=== PATIENT | female | born 1990 | race Caucasian/White ===

== ENCOUNTER → 2018-09-10 15:30 | Outpatient (CLI) | payer BC, SELFPAY ==
[2018-09-10 16:31] LABS: HCG Quantitative /Beta subunit < 2.39 mIU/mL
== END ==
PROVIDERS: Visit Provider Specialist
DX: N92.6 Irregular menstruation, unspecified (principal); O26.90 Pregnancy related conditions, unspecified, unspecified trimester
CPT/HCPCS: 36415; 84702

== ENCOUNTER → 2018-12-31 16:58 | Outpatient (CLI) | payer BC, SELFPAY ==
[2018-12-31 18:09] LABS: Appearance Urine UA CLEAR; Bilirubin Urine UA NEGATIVE (NEGATIVE); Color Urine UA YELLOW; Glucose Urine UA NEGATIVE (Negative); Ketones Urine UA 2+ (NEGATIVE); Leukocyte Esterase Urine UA NEGATIVE (NEGATIVE); Nitrite Urine UA NEGATIVE (Negative); Occult Blood Urine UA NEGATIVE (Negative); Protein Urine UA NEGATIVE (Negative); Urobilinogen Urine UA 0.2 E.U./dL (0.2)
[2018-12-31 18:22] LABS: Add Manual Diff / Slide Review NO; Basophils Absolute Auto 0 /uL (0-100); Basophils Percent Auto 0.5 % (0-2); Eosinophils Absolute Auto 300 /uL (0-450); Eosinophils Percent Auto 3.6 % (2-4); Hemoglobin 14.4 g/dL (12.0-16.0); Lymphocytes Absolute Auto 2000 /uL (1100-4500); Lymphocytes Percent Auto 21.8 % (25-40); Mean Corpuscular HGB Conc 34.4 % (30-36); Mean Corpuscular Hemoglobin 31.6 PG (26-34); Mean Corpuscular Volume 91.7 fL (80-100); Monocytes Absolute Auto 400 /uL (0-900); Monocytes Percent Auto 4.6 % (3-14); Neutrophils Absolute Auto 6300 /uL (1500-7000); Neutrophils Percent Auto 69.5 % (50-75); Platelet Count 196 X10^3/uL (150-400); Red Blood Cell Count 4.58 X10^6/uL (4.0-5.2); Red Cell Distribution Width 13.9 % (11.6-14.8); White Blood Cell Count 9.1 X10^3/uL (4.5-11.0)
[2018-12-31 18:51] LABS: Hepatitis B Surface Antigen NEGATIVE s/c (NEGATIVE)
[2018-12-31 18:52] LABS: Rubella Antibody IgG 59.9 IU/mL (>15)
[2018-12-31 19:08] LABS: HIV 1 & 2 Ab/Ag 4th Gen Combo NEGATIVE (NEGATIVE)
[2018-12-31 20:06] LABS: Hep C Virus Ab w/Reflex Quant NEGATIVE s/c (NEGATIVE)
[2019-01-06 15:18] LABS: RPR Screen NONREACTIVE
== END ==
PROVIDERS: PCP Obstetrics & Gynecology; Visit Provider Obstetrics & Gynecology
DX: Z34.91 Encounter for supervision of normal pregnancy, unspecified, first trimester (principal)
CPT/HCPCS: 36415; 80055; 81003; 86787; 86803; 86850; 86900; 86901; 87086; 87389

== ENCOUNTER → 2019-01-14 14:48 | Outpatient (CLI) | payer BC, SELFPAY ==
[2019-01-14 20:32] LABS: Urine N gonorrhoeae NOT DETECTED
[2019-01-14 20:34] LABS: Urine Chlamydia NOT DETECTED
== END ==
PROVIDERS: PCP Obstetrics & Gynecology; Visit Provider Obstetrics & Gynecology
DX: Z11.3 Encounter for screening for infections with a predominantly sexual mode of transmission (principal)
CPT/HCPCS: 87491; 87591

== ENCOUNTER → 2019-03-10 15:16 | Outpatient (CLI) | payer BC, SELFPAY ==
[2019-03-14 18:32] LABS: AFP, Serum 34.7 ng/mL; Brief History NTD NOT GIVEN; Calc Gestational Age 17.4; Cigarette Smoker N; Collection Date 111819; Donated Egg NOT GIVEN; Donor Egg Age NOT GIVEN; Inhibin A, Dimeric 173 pg/mL; Maternal Weight 142 lbs; Number of Fetuses NOT GIVEN; Previous Pregnancy Down Syndro NOT GIVEN; hCG, MoM 0.93
== END ==
PROVIDERS: PCP Obstetrics & Gynecology; Visit Provider Obstetrics & Gynecology
DX: Z34.02 Encounter for supervision of normal first pregnancy, second trimester (principal); Z3A.17 17 weeks gestation of pregnancy
CPT/HCPCS: 36415; 82105; 82677; 84702; 86336

== ENCOUNTER → 2019-04-01 12:14 | Outpatient (CLI) | payer BC, SELFPAY ==
--- NOTE | 2019-04-01 12:15 | DI.US.S_ITS ---
PROCEDURE: US OB >= 14 WEEKS FETUS INDICATIONS: ANATOMY OUTSIDE/PRIOR DATING DATA: Last menstrual period (LMP): 11/08/18. LMP-based estimated date of delivery (LAWRENCE): 08/14/18. First dating scan (date and location): 01/14/19. Estimated date of delivery (LAWRENCE) from first dating scan: 08/15/19. TECHNIQUE: Real-time scanning was performed of the fetus, with image documentation and biometric measurements. COMPARISON: [facility], , OB >= 14 WEEKS FETUS, 03/10/2019, 15:09. FINDINGS: General: A single living intrauterine gestation is present. Presentation: Breech Placenta: Placental position is anterior, without previa. Amniotic fluid index: 17.6 cm, normal range is 5-24 cm. heart rate: 144 beats per minute. Maternal cervical canal: 3.4 cm long. Normal lower limit is 2.5 cm. biometrics: Biparietal diameter: 20 weeks 3 days Head circumference: 20 weeks 5 days Abdominal circumference: 21 weeks Femur length: 20 weeks 4 days Estimated gestational age from initial scan: 20 weeks 4 days Composite gestational age from present scan: 20 weeks 5 days Estimated weight and percentile: 376 g; 56 percentile Measurement variability for biometric dating: +/- 7 days from 14 weeks to 15 weeks 6 days gestation, +/- 10 days from 16 weeks to 21 weeks 6 days gestation, +/- 2 weeks from 22 weeks to 27 weeks 6 days gestation, +/- 3 weeks for 28 weeks gestation or later. weight reference: 4500 g or EFW >90/95% is considered macrosomia or large for gestational age. EFW <10% is small for gestational age. EFW 5% or less is considered intra-uterine growth restriction. Anatomic survey: Neuro: Ventricles are non-dilated at less than 10 mm. Cisterna magna is normal at 3-11 mm. Cerebellum is normal in size and morphology. Nuchal skin fold: Normal at less than 6 mm between 14-21 weeks gestational age. Face: Nose and lips, facial profile are normal. Spine: No evidence for spina bifida. Heart: 4-chambered heart is present, with normal ventricular outflow tracts. Diaphragm: Diaphragm is intact. Stomach: Left-sided stomach is present. Kidneys: No hydronephrosis. Normal is less than 5 mm in 2nd trimester, less than 7 mm in 3rd trimester. Cord: 3-vessel cord has orthotopic insertion. Bladder: Normal in size. Extremities: All 4 extremities identified. IMPRESSION: 1. Normal interval growth. 2. Normal anatomic survey. Dictated by: Carmelo OROZCO Interpreted: Sammi Balderrama MD on 04/01/2019 at 13:10 Approved by: Sammi Balderrama M.D. on 04/01/2019 at 15:47
== END ==
PROVIDERS: Family Provider Obstetrics & Gynecology; Visit Provider Obstetrics & Gynecology
DX: Z34.02 Encounter for supervision of normal first pregnancy, second trimester (principal); Z3A.20 20 weeks gestation of pregnancy
CPT/HCPCS: 76811

== ENCOUNTER → 2019-05-16 09:13 | Outpatient (CLI) | payer BC, SELFPAY ==
[2019-05-16 10:47] LABS: Hematocrit 35.6 % (36-46); Hemoglobin 12.5 g/dL (12.0-16.0)
[2019-05-16 11:07] LABS: GTT (PREG) 1 Hour PP 50gm Dose 113 mg/dL (76-139)
== END ==
PROVIDERS: Visit Provider Obstetrics & Gynecology
DX: Z34.02 Encounter for supervision of normal first pregnancy, second trimester (principal); Z34.03 Encounter for supervision of normal first pregnancy, third trimester
CPT/HCPCS: 36415; 82950; 85014; 85018

== ENCOUNTER → 2019-07-22 11:29 | Outpatient (CLI) | payer BC, SELFPAY ==
[2019-07-23 10:59] LABS: Strep Grp B PCR NEG for Grp B Strep
== END ==
PROVIDERS: Visit Provider Obstetrics & Gynecology
DX: Z34.03 Encounter for supervision of normal first pregnancy, third trimester (principal); Z3A.36 36 weeks gestation of pregnancy
CPT/HCPCS: 87653

== ENCOUNTER → 2019-08-06 12:44 | Outpatient (CLI) | payer BC, SELFPAY | PROVIDERS: Visit Provider Obstetrics & Gynecology | DX: R82.90 Unspecified abnormal findings in urine (principal) | CPT/HCPCS: 87086 ==

== ENCOUNTER 2019-08-15 08:37 | Outpatient (CLI) | payer BC, SELFPAY ==
--- NOTE | 2019-08-15 11:53 | P.TNLD_ITS ---
Visit Information Visit Information Date of evaluation: 08/15/19 Primary OB Provider: Ngozi Woodward Reason for Evaluation: Yes non-stress test Comments/Additional reasons for admission: Patient a P1 @40+0 presenting for postdates testing. [facility] Social History Smoking Status: Never smoker Evaluation Evaluation Variability: Average (6-10) monitor accelerations: Present monitor decelerations: Absent Category of Tracing: I Diagnosis, Plan/Disposition Plan/Disposition Plan: Home with scheduled follow up and antepartum precautions. Scheduled for induction at 41 weeks. OB Disposition: home
== END 2019-08-15 09:06 | disposition home or self-care (01) ==
LOC: OB 08-18 12:50
PROVIDERS: Referring Provider Obstetrics & Gynecology; Visit Provider Obstetrics & Gynecology
DX: O48.0 Post-term pregnancy (principal); Z3A.40 40 weeks gestation of pregnancy
CPT/HCPCS: 59025; G0378; G0379

== ENCOUNTER 2019-08-17 22:42 | Inpatient (IN) | payer BC, SELFPAY ==
[2019-08-18 02:16] VITALS: BP 110/73
[2019-08-18 03:02] LABS: Add Manual Diff / Slide Review NO; Basophils Absolute Auto 100 /uL (0-100); Basophils Percent Auto 0.5 % (0-2); Eosinophils Absolute Auto 0 /uL (0-450); Eosinophils Percent Auto 0.3 % (2-4); Hematocrit 39.4 % (36-46); Hemoglobin 13.4 g/dL (12.0-16.0); Lymphocytes Absolute Auto 1400 /uL (1100-4500); Lymphocytes Percent Auto 9.9 % (25-40); Mean Corpuscular HGB Conc 33.9 % (30-36); Mean Corpuscular Hemoglobin 31.3 PG (26-34); Mean Corpuscular Volume 92.5 fL (80-100); Monocytes Absolute Auto 400 /uL (0-900); Monocytes Percent Auto 2.7 % (3-14); Neutrophils Absolute Auto 12100 /uL (1500-7000); Neutrophils Percent Auto 86.6 % (50-75); Platelet Count 166 X10^3/uL (150-400); Red Blood Cell Count 4.26 X10^6/uL (4.0-5.2); Red Cell Distribution Width 13.5 % (11.6-14.8)
[2019-08-18] MEDS: OXYTOCIN 10 UNIT/ML VIAL 20 UNIT (04:00)
--- NOTE | 2019-08-18 04:13 | P.HPOB_ITS ---
OB HPI Date/Time Date of admission: 08/18/19 Date Patient Seen: 08/18/19 Time Patient Seen: 03:00 History of Present Condition Chief complaint: eval of labor : 1 Para: 0 Estimated Date of Delivery: 08/15/19 Estimated Gestational Age (weeks): 40w3d Narrative: Stefani Sim is a 29 year old at 40w3d who presented in active labor. Pt reports contractions started yesterday at 3am, increasing in frequency and intensity since then. No vaginal bleeding or LOF. Pt has been feeling baby move regularly. History of Present care: good care, initiated at week # (9) and pounds weight gain (21) Dating criteria: based on 1st trimester US only Ultrasounds: normal 1st trimester US and normal mid trimester US Obstetrical complications: none Medical complications: none Preadmission Labs Blood type: A (+) positive -: Antibody screen: negative, GBS status: negative, HBsAG: negative, HIV: negative and RPR/VDLR: negative -: Chlamydia screen: not detected and Gonorrhea screen: not detected -: Rubella: immune and Varicella: immune HCT: 35.6 HCAB: negative Quad screen: Normal Urine: Lactobacillus 1 hr GTT: 113 Evaluation Evaluation Baseline heart rate: 130 Variability: Moderate (11-25) monitor accelerations: Present monitor decelerations: Absent Contraction Frequency (minutes): 2 Uterine Contraction Intensity: Strong/Firm Category of Tracing: I Cervical dilation (cm): 10 Cervical effacement (%): 100 station: +2 Laboratory results: Laboratory Tests 08/18/19 08/18/19 02:50 02:50 WBC 14.0 H RBC 4.26 Hgb 13.4 Hct 39.4 MCV 92.5 MCH 31.3 MCHC 33.9 RDW 13.5 Plt Count 166 Neut % (Auto) 86.6 H Lymph % (Auto) 9.9 L [place] % (Auto) 2.7 L Eos % (Auto) 0.3 L Baso % (Auto) 0.5 Neut # (Auto) 36557 H Lymph # (Auto) 1400 [place] # (Auto) 400 Eos # (Auto) 0 Baso # (Auto) 100 Blood Type A Positive Antibody Screen Negative Comments: After informed consent, AROM performed with production of clear fluid. PFSH Social History Smoking Status: Never smoker Meds Home Medications and Allergies Home Medications Medication Instructions Recorded Confirmed Type prenat.vits,cristopher,jpi-izoe-vrtnr 1 tab PO DAILY 12/31/18 08/17/19 History Double Electric breast Pump and #1 each 05/13/19 08/17/19 Rx Supplies Allergies Allergy/AdvReac Type Severity Reaction Status Date / Time steroids Allergy Mild Flare up Uncoded 12/31/18 16:56 patient's atopic dermatitis Exam Vital Signs (past 8 hours): - 08/18/19 02:16 Blood Pressure 110/73 Narrative Exam Narrative: Gen: NAD, sitting comfortably in bed, calm and relaxed between contractions CV: RRR, no murmurs Resp: clear to auscultation bilaterally Abd: soft, nondistended, gravid Ext: trace edema Objective Labs Result Diagrams: 08/18/19 02:50 Labs: Laboratory Results - last 24 hr 08/18/19 08/18/19 02:50 02:50 WBC 14.0 H RBC 4.26 Hgb 13.4 Hct 39.4 MCV 92.5 MCH 31.3 MCHC 33.9 RDW 13.5 Plt Count 166 Neut % (Auto) 86.6 H Lymph % (Auto) 9.9 L [place] % (Auto) 2.7 L Eos % (Auto) 0.3 L Baso % (Auto) 0.5 Neut # (Auto) 95527 H Lymph # (Auto) 1400 [place] # (Auto) 400 Eos # (Auto) 0 Baso # (Auto) 100 Blood Type A Positive Antibody Screen Negative Assessment and Plan Assessment and Plan Assessment and Plan narrative: 29yo at 40w3d here in active labor. No complications with . AROM performed with clear fluid present. GBS negative, Rh positive. - Expectant management, anticipate vaginal delivery - FHT reassuring - Natural methods for pain control, no epidural desired - GBS negative, no antibiotic prophylaxis
--- NOTE | 2019-08-18 04:21 | PM.OBPRVD ---
Labor & Delivery Delivery date: 08/18/19 Cervical ripening method: none Induction method: none Delivery monitor: external FHT Route of delivery: Episiotomy description: None L&D Laceration Description: None Estimated blood loss (mL): 200 Anesthesia type: None Complications: None Narrative: PROCEDURE: at 40w3d presented in active labor and was admitted to Labor and Delivery. The patient progressed through the 1st stage over 8 hours. Pain was controlled by natural methods. Once the pt was complete, AROM was performed with clear fluid present. The patient progressed through the 2nd stage over 37 minutes and delivered a viable female infant with APGARs 9/9 at 3:50 via without complications. The cord was clamped and cut after it stopped pulsating. The perineum and vagina were inspected with no lacerations. PREPROCEDURE DIAGNOSIS: Intrauterine at 40w3d GBS negative RH positive POSTPROCEDURE DIAGNOSIS: Intrauterine at 40w3d, delivered Same as preprocedure ROM APPEARANCE: Clear BABY A DELIVERY TIME: 3:50 BABY A WEIGHT: 7lb3.5oz BABY A NUCHAL CORD: None PLACENTA DELIVERY TIME: 3:58 PLACENTA APPEARANCE: Intact [place] Baby 1: gender: Female Presentation: vertex position: Right Occiput Anterior Placenta delivery description: Spontaneous cord vessel description: 3 Vessels score (1 min): 9 score (5 min): 9 Plan for aftercare: Normal care
[2019-08-18] MEDS: IBUPROFEN 600 MG TABLET PO (05:02)
--- NOTE | 2019-08-19 08:34 | P.DS_ITS ---
Discharge Providers Provider Date of admission: 08/17/19 22:42 Discharge Date: 08/19/19 Consults: 08/19/19 04:29 Consult to Interior Design Professor Routine Comment: Discharge provider: Gita Leach MD Summary Hospital Course Date Patient Seen: 08/19/19 Time Patient Seen: 07:45 Hospital Course: Pt presented in active labor. She progressed to complete, using natural methods for pain control, and had an of a viable baby girl on 08/18/19 at 3:50am. There were no lacerations to repair. , there were no complications. At the time of discharge, she was voiding, ambulating, and passing flatus without difficulty. Her pain was adequately controlled. She was with good latch using the nipple shield. Her lochia was decreasing appropriately. She will f/u with Dr Woodward for a 6 week check. Peripartum Data Infant Delivery Method: Natural Vaginal Laceration description: None Episiotomy description: None Procedures: Spontaneous vaginal delivery complications: none [place] 1: Gender: Female Disposition of : home Discharge Diagnosis (1) (spontaneous vaginal delivery): Status: Acute Status at Discharge Cognitive/behavioral status at discharge: oriented Functional status at discharge: independent ambulation Overall status at discharge: patient is progressing back to baseline Time Spent with Patient Time attestation: Total time spent providing and/or coordinating discharge s ervices: Time spent: Greater than 30 minutes Objective Labs Result Diagrams: 08/18/19 02:50 Discharge Plan Discharge Plan Patient Disposition: Home Discharge orders & Medications Prescriptions: New acetaminophen 325 mg Tablet 650 mg PO Q6HR PRN (Reason: Pain, Mild (1-3)) Qty: 30 RF: 0 Dermoplast (with menthol) 20-0.5 % Aerosol 1 spray topical Q1HR PRN (Reason: perineal pain) Qty: 54 RF: 0 docusate sodium [DOK] 100 mg Capsule 100 mg PO DAILY Qty: 30 RF: 0 ibuprofen 600 mg Tablet 600 mg PO Q6HR PRN (Reason: Pain, Mild (1-3)) Qty: 30 RF: 0 Bun-C-Ecrpin Cream 1 applic topical PRN PRN (Reason: Tenderness) Qty: 15 RF: 0 Continued (DME) Double Electric breast Pump and Supplies See Rx Instructions .ROUTE .MEDSUPPLY Qty: 1 RF: 0 prenat.vits,cristopher,qhe-udqi-gyxqb tablet 1 tab PO DAILY RF: 0 Follow up/Referrals: Ngozi Woodward MD [Physician] - (please f/u w/ Dr. Woodward on SundaySeptember 28 @ 2pm) Diet/Activity/Treatments Diet: Diet as Tolerated and Regular Skin/Wound/Dressing Care Report to your healthcare provider any signs of infection, such as:: chills, fever, increased pain and unusual drainage Visit Report/Discharge Packet Instructions: DI for Labor and Delivery, Vaginal Stand Alone Forms: Discharge: Care Visit Report Forms: Patient Portal/API, Stroke Signs & Symptoms Discharges patient from system. Discharge Date/Time: 08/19/19 10:28
== END 2019-08-19 10:28 | disposition home or self-care (01) | DRG 807 ==
PROVIDERS: Family Medicine; Admitting Provider Obstetrics & Gynecology; Referring Provider Obstetrics & Gynecology; Visit Provider Obstetrics & Gynecology
DX: O80 Encounter for full-term uncomplicated delivery (principal); Z37.0 Single live birth; Z3A.40 40 weeks gestation of pregnancy
CPT/HCPCS: 36415; 59025; 59050; 59400; 59409; 85025; 86850; 86900; 86901; G0379; J2590

== ENCOUNTER → 2020-12-03 12:15 | Outpatient (CLI) | payer OTHER, SELFPAY ==
[2020-12-04 08:13] LABS: SARS-CoV19- IgM Negative (Negative)
[2020-12-04 10:36] LABS: SARS CoV19 IgG Negative (Negative)
== END ==
PROVIDERS: PCP Family Medicine; Referring Provider Family Medicine; Visit Provider Family Medicine
DX: Z20.822 Contact with and (suspected) exposure to COVID-19 (principal)
CPT/HCPCS: 36415; 86769

== ENCOUNTER → 2021-02-28 10:22 | Outpatient (CLI) | payer SELFPAY ==
[2021-02-28 11:38] LABS: Hematocrit 41.1 % (36-46); Hemoglobin 13.9 g/dL (12.0-16.0); Mean Corpuscular HGB Conc 33.9 % (30-36); Mean Corpuscular Hemoglobin 31.5 PG (26-34); Mean Corpuscular Volume 92.9 fL (80-100); Platelet Count 231 X10^3/uL (150-400); Red Blood Cell Count 4.43 X10^6/uL (4.0-5.2); Red Cell Distribution Width 13.5 % (11.6-14.8); White Blood Cell Count 5.8 X10^3/uL (4.5-11.0)
[2021-02-28 12:43] LABS: Neutrophils Absolute Manual 2900 /uL (3000-5900); RBC Morphology Normal Morphology; Total Cells Counted 100
== END ==
PROVIDERS: PCP Family Medicine; Referring Provider Family Medicine; Visit Provider Family Medicine
DX: R59.1 Generalized enlarged lymph nodes (principal); D72.89 Other specified disorders of white blood cells
CPT/HCPCS: 36415; 85025

== ENCOUNTER → 2022-01-30 13:57 | Outpatient (ROUT) | payer SELFPAY ==
[2022-01-30 15:26] LABS: Bilirubin Urine UA NEGATIVE (NEGATIVE); Color Urine UA YELLOW; Glucose Urine UA NEGATIVE (Negative); Ketones Urine UA TRACE (NEGATIVE); Leukocyte Esterase Urine UA 1+ (NEGATIVE); Nitrite Urine UA NEGATIVE (Negative); Occult Blood Urine UA NEGATIVE (Negative); Protein Urine UA NEGATIVE (Negative); Specific Gravity Urine UA 1.025 (1.000-1.035); Urobilinogen Urine UA 0.2 E.U./dL (0.2)
[2022-01-30 15:28] LABS: Appearance Urine UA Slightly Cloudy; pH Urine UA 5.5 (4.5-8.0)
[2022-01-30 15:32] LABS: RBC Urine None Seen (0-5/HPF); WBC Urine 5-10/HPF (0-5/HPF)
[2022-01-30 15:33] LABS: Amorphous Sediment Urine 1+; Bacteria Urine Moderate (10-30); Mucus Urine 1+ (Negative); Squamous Epithelial Cell Urine 5-10 /HPF (0-5/HPF)
== END ==
PROVIDERS: PCP Family Medicine; Visit Provider Family Medicine
DX: Z34.81 Encounter for supervision of other normal pregnancy, first trimester (principal)
CPT/HCPCS: 81003; 81015; 87086

== ENCOUNTER → 2022-02-07 13:41 | Outpatient (CLI) | payer SELFPAY ==
[2022-02-07 16:24] LABS: Add Manual Diff / Slide Review NO; Basophils Absolute Auto 0 /uL (0-100); Basophils Percent Auto 0.4 % (0-2); Eosinophils Absolute Auto 200 /uL (0-450); Hematocrit 38.6 % (36-46); Hemoglobin 13.3 g/dL (12.0-16.0); Lymphocytes Absolute Auto 1700 /uL (1100-4500); Lymphocytes Percent Auto 24.1 % (25-40); Mean Corpuscular HGB Conc 34.4 % (30-36); Mean Corpuscular Hemoglobin 31.1 PG (26-34); Mean Corpuscular Volume 90.4 fL (80-100); Monocytes Absolute Auto 300 /uL (0-900); Monocytes Percent Auto 3.9 % (3-14); Neutrophils Absolute Auto 4900 /uL (1500-7000); Neutrophils Percent Auto 68.6 % (50-75); Platelet Count 209 X10^3/uL (150-400); Red Blood Cell Count 4.27 X10^6/uL (4.0-5.2); Red Cell Distribution Width 13.3 % (11.6-14.8); White Blood Cell Count 7.1 X10^3/uL (4.5-11.0)
[2022-02-08 09:15] LABS: RPR Screen Non Reactive (Non Reactive)
[2022-02-09 15:41] LABS: Hepatitis B Surface Antigen NEGATIVE s/c (NEGATIVE); Rubella Antibody IgG 31.3 IU/mL (>15)
== END ==
PROVIDERS: PCP Family Medicine; Referring Provider Family Medicine; Visit Provider Family Medicine
DX: Z34.81 Encounter for supervision of other normal pregnancy, first trimester (principal); Z31.5 Encounter for procreative genetic counseling; Z13.79 Encounter for other screening for genetic and chromosomal anomalies
CPT/HCPCS: 36415; 80055

== ENCOUNTER → 2022-05-02 09:22 | Outpatient (CLI) | payer BC, SELFPAY ==
--- NOTE | 2022-05-02 09:23 | DI.US.S_ITS ---
PROCEDURE: US OB >= 14 WEEKS FETUS INDICATIONS: Anatomy OUTSIDE/PRIOR DATING DATA: Last menstrual period (LMP): 11/23/2021. LMP-based estimated date of delivery (LAWRENCE): 08/30/2022. First dating scan (date and location): 05/02/2022. Estimated date of delivery (LAWRENCE) from first dating scan: 09/06/2022. The calculations are made using the clinical LAWRENCE of 08/30/2022. TECHNIQUE: Real-time scanning was performed of the fetus, with image documentation and biometric measurements. COMPARISON: [facility], , OB >= 14 WEEKS FETUS, 08/15/2019, 8:10. FINDINGS: General: A single living intrauterine gestation is present. Presentation: Breech. Placenta: Placental position is posterior , without previa. Amniotic fluid index: 15.9 cm, normal range is 5-24 cm. Single deepest vertical pocket is 6.1 cm. heart rate: 152 beats per minute. Maternal cervical canal: 3.5 cm long. Normal lower limit is 2.5 cm. biometrics: Biparietal diameter: 5.1 cm 21 weeks 3 days Head circumference: 19.7 cm 21 weeks 6 days Abdominal circumference: 17.9 cm 22 weeks 5 days Femur length: 3.6 cm 21 weeks 3 days Clinically estimated gestational age: 22 weeks 6 days Composite gestational age from present scan: 21 weeks 6 days Estimated weight and percentile: 476 g 13th percentile Anatomic survey: Neuro: Ventricles are non-dilated at less than 10 mm. Cisterna magna is normal at 3-11 mm. Cerebellum is normal in size and morphology. Nuchal skin fold: Normal at less than 6 mm between 14-21 weeks gestational age. Face: Nose and lips, facial profile are normal. Spine: No evidence for spina bifida. Heart: 4-chambered heart is present, with normal ventricular outflow tracts. Diaphragm: Diaphragm is intact. Stomach: Left-sided stomach is present. Kidneys: No hydronephrosis. Normal is less than 5 mm in 2nd trimester, less than 7 mm in 3rd trimester. Cord: 3-vessel cord has orthotopic insertion. Bladder: Normal in size. Extremities: All 4 extremities identified. IMPRESSION: Single live intrauterine with ultrasound gestational age today of 21 weeks 6 days. Anatomy is within normal limits. It is noted that estimated weight is at the 13th percentile and close interval imaging follow-up is recommended. We strive to produce accurate, complete, and clear reports of imaging services. To assist us in improving patient care, this report was composed using standard report templates and voice recognition software. Therefore, it may contain abnormal punctuation, insertions and/or omissions. Occasional wrong-word or sound-alike substitutions may occur. Though we review the report and make efforts to correct it, we do recommend that the report be read carefully in proper context to recognize any text inaccuracies. Dictated by: Sammi Balderrama M.D. on 05/02/2022 at 16:59 Approved by: Sammi Balderrama M.D. on 05/02/2022 at 17:01
== END ==
PROVIDERS: PCP Family Medicine; Referring Provider Family Medicine; Visit Provider Family Medicine
DX: Z34.92 Encounter for supervision of normal pregnancy, unspecified, second trimester (principal); Z3A.21 21 weeks gestation of pregnancy
CPT/HCPCS: 76811

== ENCOUNTER → 2022-06-05 07:53 | Outpatient (CLI) | payer BC, SELFPAY ==
--- NOTE | 2022-06-05 10:11 | DI.US.S_ITS ---
PROCEDURE: US OB FOLLOW UP INDICATIONS: growth scan, small for gestational age OUTSIDE/PRIOR DATING DATA: Last menstrual period (LMP): 11/23/2021 LMP-based estimated date of delivery (LAWRENCE): 08/30/2022 First dating scan (date and location): 05/02/2022 Estimated date of delivery (LAWRENCE) from first dating scan: 09/06/2022 The calculations are made using the clinical LAWRENCE of 08/30/2022 TECHNIQUE: Real-time scanning was performed of the fetus, with image documentation and biometric measurements. Endovaginal scanning: Not performed COMPARISON: [facility], , OB >= 14 WEEKS FETUS, 05/02/2022, 9:29. FINDINGS: General: A single living intrauterine gestation is present. Presentation: Vertex Placenta: Placental position is posterior, without previa. Amniotic fluid index: Amniotic fluid is subjectively normal. Single deepest vertical pocket is 4.2 cm. heart rate: 163 beats per minute. Maternal cervical canal: 3.6 cm long. Normal lower limit is 2.5 cm biometrics: Biparietal diameter: 6.7 cm, 27 weeks 0 days Head circumference: 25.0 cm, 27 weeks 1 day Abdominal circumference: 22.8 cm, 27 weeks 1 day Femur length: 5.0 cm, 26 weeks 6 days Clinically estimated gestational age: 27 weeks 5 days Composite gestational age from present scan: 27 weeks 0 days Estimated weight and percentile: 1016 g, 16th percentile Other: Not applicable. IMPRESSION: Single live intrauterine . Estimated weight is 1016 g, 16th percentile for clinical gestational age. We strive to produce accurate, complete, and clear reports of imaging services. To assist us in improving patient care, this report was composed using standard report templates and voice recognition software. Therefore, it may contain abnormal punctuation, insertions and/or omissions. Occasional wrong-word or sound-alike substitutions may occur. Though we review the report and make efforts to correct it, we do recommend that the report be read carefully in proper context to recognize any text inaccuracies. Approved by: Davis Barillas M.D. on 06/05/2022 at 16:20
[2022-06-05 10:20] LABS: Hematocrit 36.7 % (36-46); Hemoglobin 12.5 g/dL (12.0-16.0)
[2022-06-05 11:07] LABS: GTT (PREG) 1 Hour PP 50gm Dose 112 mg/dL (76-139)
== END ==
PROVIDERS: Family Medicine; PCP Family Medicine; Referring Provider Family Medicine; Visit Provider Family Medicine
DX: O36.5920 Maternal care for other known or suspected poor fetal growth, second trimester, not applicable or unspecified (principal); Z3A.27 27 weeks gestation of pregnancy; Z36.2 Encounter for other antenatal screening follow-up
CPT/HCPCS: 36415; 76816; 82950; 85014; 85018

== ENCOUNTER → 2022-08-04 11:38 | Outpatient (CLI) | payer BC, SELFPAY ==
[2022-08-05 12:25] LABS: Strep Grp B PCR POS for Grp B Strep
== END ==
PROVIDERS: PCP Family Medicine; Visit Provider Family Medicine
DX: Z34.83 Encounter for supervision of other normal pregnancy, third trimester (principal); Z3A.36 36 weeks gestation of pregnancy
CPT/HCPCS: 87653

== ENCOUNTER → 2022-08-23 10:31 | Outpatient (CLI) | payer BC, SELFPAY ==
[2022-08-24 11:37] LABS: Strep Grp B PCR POS for Grp B Strep
== END ==
PROVIDERS: PCP Family Medicine; Visit Provider Family Medicine
DX: O99.820 Streptococcus B carrier state complicating pregnancy (principal); B95.1 Streptococcus, group B, as the cause of diseases classified elsewhere; Z3A.39 39 weeks gestation of pregnancy
CPT/HCPCS: 87653

== ENCOUNTER 2022-08-25 08:54 | Inpatient (IN) | payer BC, SELFPAY ==
[2022-08-25 10:33] LABS: Add Manual Diff / Slide Review NO; Basophils Absolute Auto 0 /uL (0-100); Basophils Percent Auto 0.2 % (0-2); Eosinophils Absolute Auto 0 /uL (0-450); Eosinophils Percent Auto 0.1 % (2-4); Hematocrit 42.4 % (36-46); Hemoglobin 14.6 g/dL (12.0-16.0); Lymphocytes Absolute Auto 1100 /uL (1100-4500); Lymphocytes Percent Auto 11.6 % (25-40); Mean Corpuscular HGB Conc 34.4 % (30-36); Mean Corpuscular Hemoglobin 31.7 PG (26-34); Mean Corpuscular Volume 92.4 fL (80-100); Monocytes Absolute Auto 300 /uL (0-900); Neutrophils Absolute Auto 8200 /uL (1500-7000); Neutrophils Percent Auto 85.1 % (50-75); Red Blood Cell Count 4.59 X10^6/uL (4.0-5.2); White Blood Cell Count 9.7 X10^3/uL (4.5-11.0)
--- NOTE | 2022-08-25 11:00 | PM.OBHP.IH.1 ---
OB HPI Date/Time Date of admission: 08/25/22 Date Patient Seen: 08/25/22 History of Present Condition Chief complaint: maternity LAWRENCE Calculator Estimated Delivery Date Method Current WG Current Estimate 08/30/22 Manual 39w 2d Final LAWRENCE - ANGIE Other Estimates 08/30/22 LMP (Certain) 39w 2d 09/04/22 Ultrasound #1 38w 4d Estimated Gestational Age (weeks): 39w2d : 2 Para: 1 Narrative: Pt is a 32yo at 39w2d here with regular contractions. Pt reports contractions started around 9pm last night, increasing in intensity and frequency since then. No LOF or vaginal bleeding. She is feeling her baby move regularly. Her has been uncomplicated. care: good care, initiated at week # (9) and pounds weight gain (41) Dating criteria OB: LMP confirmed by 1st trimester US Ultrasounds: normal 1st trimester US and normal mid trimester US Obstetrical complications: none Medical complications OB: none Preadmission Labs Last OB Lab Results: Blood Type A Positive 08/25/22 09:25 Antibody Screen Negative 08/25/22 09:25 Hematocrit 42.4 % (36-46) 08/25/22 09:25 Hemoglobin 14.6 g/dL (12.0-16.0) 08/25/22 09:25 Hepatitis B Surface Antigen Negative s/c (NEGATIVE) 02/07/22 14:40 Hepatitis C Antibody Negative s/c (NEGATIVE) 12/31/18 17:38 Rubella Antibody 31.3 IU/mL (>15) 02/07/22 14:40 Varicella-Zoster IgG Antibody 984.70 Index (< 135.00) H 12/31/18 17:38 Glucose 1 Hour 112 mg/dL (76-139) 06/05/22 09:05 Group B Streptococcus (PCR) Pos for grp b strep H 08/23/22 10:31 -: Urine: negative Genetic Screens: Quad screen: Normal External Labs -: Urine: negative Prior (ies) Past Pregnancies Del. Date GA/Weeks Labor Lgth Wt Sex Route Outcome Anesthesia Place Delv Breastfeed Preg Comp Name 08/18/19 40.2 6 7 lb 3 oz Female vaginal live - full term IH still weaning as of 01/10/22 none Stephany Evaluation Evaluation Baseline heart rate: 145 Variability: Moderate (11-25) monitor accelerations: Present Monitor Decelerations: Absent Contraction Frequency (minutes): 3 Uterine Contraction Intensity: Strong/Firm Status: Category l Dilation (cm): 6 Effacement (%): 90 station: 0 PFSH Medical History Allergies (~1996) Chicken pox (~1995) Eczema (~1992) Heart murmur Hemorrhoid (~2019) Migraines (~1996) Steroid withdrawal syndrome (~2017) (spontaneous vaginal delivery) Surgical History Anesthesia History of removal of skin mole [place] teeth extracted (~2009) Family History Brother Congenital heart defect Mother Skin cancer Hypertension Father Bladder cancer Agent orange exposure Hypertension Sister Bipolar disorder Grandfather Pneumonia Grandmother Uterine cancer Grandfather ALS (amyotrophic lateral sclerosis) Social History marital status: number of children: 1 household members: spouse lives independently: Yes housing: house pets and animals: No education level: college ([employer] degree) 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) current occupational exposures/hazards: No special john needs: No travel history: recent ([facility] only) seatbelt use: always water heater temp set < 120 deg: Yes working smoke detector in home: Yes fire extinguisher in home: Yes carbon monox detector in home: Yes firearms in home: No do you feel safe at home: Yes Smoking Status: Never smoker during the past year weight has: remained stable well-balanced diet: daily or most days daily servings fruits/ve-4 caffeine: No Type(s) of exercise: walking, weight lifting and yoga frequency: daily duration: 30-45 minutes/day Meds Home Medications and Allergies Home Medications Medication Instructions Recorded Confirmed Type prenat.vits,cristopher,nbn-ajxv-ykofh 1 tab PO DAILY 12/31/18 08/25/22 History Double Electric breast Pump and #1 ea 05/13/19 08/25/22 Rx Supplies docosahexaenoic acid 200 mg mg PO 01/10/22 08/16/22 History capsule ( DHA) Allergies Allergy/AdvReac Type Severity Reaction Status Date / Time Influenza Virus Vaccines Allergy Intermediate Hives Verified 08/25/22 10:12 Corticosteroids Allergy Mild Flare up Verified 08/25/22 10:12 (Glucocorticoids) patient's atopic dermatitis OB Exam Narrative Exam Narrative: Gen: NAD, sitting comfortably in bed, appears well CV: RRR, no murmurs Resp: clear to auscultation bilaterally Abd: soft, nontender, gravid Ext: no edema Objective Labs 08/25/22 09:25 Labs: Laboratory Results - last 24 hr 08/25/22 09:25 WBC 9.7 RBC 4.59 Hgb 14.6 Hct 42.4 MCV 92.4 MCH 31.7 MCHC 34.4 RDW 14.0 Neut % (Auto) 85.1 H Lymph % (Auto) 11.6 L [place] % (Auto) 3.0 Eos % (Auto) 0.1 L Baso % (Auto) 0.2 Neut # (Auto) 8200 H Lymph # (Auto) 1100 [place] # (Auto) 300 Eos # (Auto) 0 Baso # (Auto) 0 Assessment and Plan Assessment and Plan Assessment and Plan narrative: 32yo at 39w2d here in active labor. Uncomplicated . Rh positive, GBS positive. - Expectant management, anticipate - FHT reassuring - Desires natural methods for pain control - GBS positive. Have had extensive conversations with the pt regarding risks of not having GBS prophylaxis with ampicillin when in labor. The pt has expressed understanding, and asked appropriate f/u questions. She is still undecided regarding prophylaxis, but does not wish to initiate yet. She will let us know if she chooses to treat with ampicillin. She is aware of the risks to baby including but not limited to pneumonia, meningitis, and even .
[2022-08-25 11:06] LABS: Platelet Count 149 X10^3/uL (150-400)
--- NOTE | 2022-08-25 12:33 | PM.OBPRVD ---
Labor & Delivery Delivery date: 08/25/22 Intrapartal Events: None Cervical ripening method: none Induction method: none Delivery monitor: external FHT and external uterine Route of delivery: Episiotomy description: None L&D Laceration Description: None Quantitative Blood Loss: 10 Anesthesia Type: None Complications: None Narrative: PROCEDURE: at 39w2d presented in active labor and was admitted to Labor and Delivery. The patient progressed through the 1st stage over 4 hours. ROM occured at 11:32 with clear fluid. Pain was controlled with natural methods. The patient progressed through the 2nd stage over 27 minutes and delivered a viable female infant with APGARs 9/9 at 11:42 via without complications. The cord was cut and clamped after it stopped pulsating. The placenta delivered with gentle cord traction, and appeared complete. The perineum and vagina were inspected with no lacerations. Needle and sponge counts were correct.? The vagina was inspected and no items were left in situ. Stefani was doing well with her and at bedside. PREPROCEDURE DIAGNOSIS: Intrauterine at 39w2d GBS positive RH positive POSTPROCEDURE DIAGNOSIS: Intrauterine at 39w2d, delivered Same as preprocedure Baby 1: Infant gender: Female Presentation: vertex Position: Left Occiput Anterior Placenta delivery description: Spontaneous Cord Vessel Description: 3 Vessels score (1 min): 9 score (5 min): 9 weight: 6 lb 13.843 oz Plan for aftercare: Routine care
[2022-08-25 12:53] VITALS: BP 117/59
--- NOTE | 2022-08-26 11:15 | P.DS_ITS ---
Discharge Providers Provider Date of admission: 08/25/22 08:54 Discharge Date: 08/26/22 Primary care physician: Gita Leach MD Discharge provider: Gita Leach MD Summary Hospital Course Date Patient Seen: 08/26/22 Diagnoses: 39w2d gestation GBS positive Rh positive Hospital Course: The pt presented in active labor and progressed to complete. She used natural methods for pain control. She had an uncomplicated of a viable baby girl. , there were no complications. At the time of discharge she was voiding, ambulating, and passing flatus without difficulty. Her lochia was decreasing appropriately. Her pain was well controlled. She will f/u in 6 weeks for check. Peripartum Data Infant Delivery Method: Natural Vaginal Laceration Description: None Episiotomy description: None Procedures: Spontaneous vaginal delivery complications: none [place] 1: Gender: Female Disposition of : home Discharge Diagnosis (1) (spontaneous vaginal delivery): Status: Acute Status at Discharge Cognitive/behavioral status at discharge: oriented Functional status at discharge: independent ambulation Overall status at discharge: patient is progressing back to baseline Time Spent with Patient Time attestation: Total time spent providing and/or coordinating discharge services: Objective Labs 08/25/22 09:25 Exam Narrative Exam Narrative: Gen: NAD, sitting comfortably in bed, appears well CV: RRR, no murmurs Resp: clear to auscultation bilaterally Abd: soft, appropriately tender, fundus firm and below the umbilicus, nondistended Ext: no edema Discharge Plan Discharge Plan Patient Disposition: Home Discharge orders & Medications Prescriptions: Continued (DME) Double Electric breast Pump and Supplies See Rx Instructions .ROUTE .MEDSUPPLY Qty: 1 0RF Rx Instructions: As directed for 99 months. prenat.vits,cristopher,zvn-nxri-uofxr tablet 1 tab PO DAILY DHA 200 mg capsule 200 mg PO 1XD Follow up/Referrals: Gita Leach MD [Primary Care Provider] - 6 Weeks Diet/Activity/Treatments Diet: Diet as Tolerated and Regular Skin/Wound/Dressing Care Report to your healthcare provider any signs of infection, such as:: chills, fever, increased pain and unusual drainage Visit Report/Discharge Packet Instructions: DI for Labor and Delivery, Vaginal Stand Alone Forms: Patient Portal/API, Stroke Signs & Symptoms Discharge Data Primary Care Provider: Gita Leach
[2022-08-26 18:18] VITALS: BP 113/72; PULSE 55; RESP 11; TEMP 37.1
== END 2022-08-26 18:00 | disposition home or self-care (01) | DRG 807 ==
PROVIDERS: Admitting Provider Family Medicine; PCP Family Medicine; Referring Provider Family Medicine; Visit Provider Family Medicine
DX: O99.824 Streptococcus B carrier state complicating childbirth (principal); Z37.0 Single live birth; Z3A.39 39 weeks gestation of pregnancy
CPT/HCPCS: 36415; 59050; 59400; 85025; 86850; 86900; 86901; G0379

== ENCOUNTER → 2024-04-25 17:16 | Outpatient (CLI) | payer BC, SELFPAY | PROVIDERS: PCP Family Medicine; Visit Provider Physician Assistant Medical | DX: R30.0 Dysuria (principal); N94.89 Other specified conditions associated with female genital organs and menstrual cycle | CPT/HCPCS: 87086; 87210 ==

== ENCOUNTER → 2025-03-12 14:45 | Outpatient (CLI) | payer BC, SELFPAY ==
[2025-03-12 15:49] LABS: Natera Collection Specimen Collected
[2025-03-12 16:20] LABS: Hematocrit 39.6 % (36-46); Hemoglobin 13.8 g/dL (12.0-16.0); Lymphocytes Absolute Auto 2000 /uL (1100-4500); Mean Corpuscular HGB Conc 34.7 % (30-36); Mean Corpuscular Hemoglobin 31.4 PG (26-34); Mean Corpuscular Volume 90.3 fL (80-100); Platelet Count 187 X10^3/uL (150-400)
[2025-03-12 16:27] LABS: Add Manual Diff / Slide Review SLIDE REVIEW
[2025-03-12 17:04] LABS: RBC Morphology Normal Morphology
[2025-03-12 17:13] LABS: Hepatitis B Surface Antigen NEGATIVE s/c (NEGATIVE)
[2025-03-12 17:39] LABS: Hep C Virus Ab w/Reflex Quant NEGATIVE s/c (NEGATIVE)
[2025-03-12 17:40] LABS: HIV 1 & 2 Ab/Ag 4th Gen Combo NEGATIVE (NEGATIVE)
== END ==
PROVIDERS: PCP Family Medicine; Referring Provider Family Medicine; Visit Provider Family Medicine
DX: Z34.80 Encounter for supervision of other normal pregnancy, unspecified trimester (principal)
CPT/HCPCS: 36415; 80055; 86787; 86803; 86850; 86900; 86901; 87389